=== PATIENT | male | born 1960 | race African-American/Black ===

== ENCOUNTER 2021-04-03 19:26 | Inpatient (IN) | payer OTHER ==
[~2021-04-03] VITALS: Ht 175.3 cm; Wt 64.3 kg
[2021-04-03 20:29] LABS: Albumin 4.3 g/dL (3.4-5.0); Calcium 8.9 mg/dL (8.5-10.1); Potassium 3.4 mmol/L (3.5-5.1)
[2021-04-03 20:34] LABS: BUN/Creatinine Ratio 21.4; Bilirubin, Total 0.4 mg/dL (0.2-1.0)
[2021-04-03] MEDS ORDERED: ALBUTEROL SULF 2.5 MG/0.5ML(0.5%) NEB SOLN NEB ONE ×2 (21:00→21:15)
[2021-04-03] MEDS ORDERED: methylPREDNISolone SOD SUCC 125 MG/2 ML VL IV ONE (21:00)
[2021-04-03] MEDS ORDERED: IPRATROPIUM BROM 0.5 MG/2.5ML INH SOL NEB ONE (21:00)
[2021-04-03 21:07] LABS: Basophils # (auto) 0 10 ^3/uL (0-0.2); Eosinophils # (auto) 0.1 10 ^3/uL (0-0.8); Monocytes # (auto) 0.3 10 ^3/uL (0-1.3); White Blood Cell 3.5 10^3/uL (4.4-10.8)
[2021-04-03 21:08] LABS: Basophils % (auto) 0.9 % (0.0-2.0); Eosinophils % (auto) 1.7 % (0.0-7.0); Lymphocytes # (auto) 0.8 10 ^3/uL (0.4-5.4); Lymphocytes % (auto) 23.5 % (10.0-50.0); Mean Corpuscular Hemoglobin 33.5 pg (28.0-32.0); Mean Corpuscular Hgb Conc. 34.2 g/dL (32.0-36.0); Monocytes % (auto) 8.3 % (0.0-12.0); Neutrophils # (auto) 2.3 10 ^3/uL (1.6-8.6); Neutrophils % (auto) 65.6 % (37.0-80.0); Nucleated Red Blood Cells % 0.2 %; Red Blood Cells 3.57 10^6/uL (4.5-5.90); Red Cell Distribution Width 15.4 % (11.8-14.3)
[2021-04-03] MEDS ORDERED: ALBUTEROL SULF 2.5 MG/0.5ML(0.5%) NEB SOLN ONE (21:14)
[2021-04-03] MEDS ORDERED: HEPARIN DRIP/D5W 100UNITS/ML 250 ML IV SCH (21:15)
[2021-04-03] MEDS ORDERED: CLOPIDOGREL BISULFATE 75 MG TAB PO ONE (21:15)
[2021-04-03] MEDS ORDERED: HEPARIN SODIUM (PORCINE) 5000 UNITS/ML 1ML VIAL IV ONE (21:15)
[2021-04-03] MEDS ORDERED: CLOPIDOGREL BISULFATE 75 MG TAB ONE ×2 (22:58→22:59)
[2021-04-03] MEDS ORDERED: MORPHINE SULFATE 4 MG/ML SYR/VIAL IV ONE (23:15)
[2021-04-04 00:02] LABS: INR 1.03 (0.9-1.15)
[2021-04-04 00:04] LABS: Partial Thromboplastin Time 96.5 sec (23.0-31.2)
[2021-04-04] MEDS ORDERED: D5W/SOD CHL 0.45% 1,000 ML IV SCH (01:30)
[2021-04-04] MEDS ORDERED: MORPHINE SULF INJ 2 MG/ML SYRINGE 1ML IV PRN (01:30)
[2021-04-04] MEDS ORDERED: DEXTROSE (50%) 50ML SYRG IV PRN (01:30)
[2021-04-04] MEDS ORDERED: ACETAMINOPHEN 325 MG TAB PO PRN (01:30)
[2021-04-04] MEDS ORDERED: NITROGLYCERIN 0.4 MG SL TAB SL PRN (01:30)
[2021-04-04] MEDS: MORPHINE SULFATE 4 MG/ML SYR/VIAL IV PRN ×6 (03:45→23:05)
[2021-04-04] MEDS: ACCU-CHEK COMFORT CURVE STRIP VI SCH ×3 (04:00→12:23)
[2021-04-04] MEDS: InsuLIN REG 1unit/0.01ml Soln (100units/ml) SC SCH ×4 (04:00→12:24)
[2021-04-04 04:07] VITALS: BP 144/72
[2021-04-04 05:00] VITALS: BP 144/72
[2021-04-04] MEDS ORDERED: POTASSIUM CHL 20 Meq TABLET PO ONE (05:30)
[2021-04-04 08:23] LABS: Albumin 3.7 g/dL (3.4-5.0); Calcium 8.5 mg/dL (8.5-10.1); Potassium 4.6 mmol/L (3.5-5.1)
[2021-04-04 08:28] LABS: BUN/Creatinine Ratio 23.8; Bilirubin, Total 0.4 mg/dL (0.2-1.0); Total Protein 7.7 g/dL (6.4-8.2)
[2021-04-04 09:00] VITALS: BP 132/79
[2021-04-04] MEDS ORDERED: ZINC SULFATE 220mg CAP or TAB PO SCH (10:00)
[2021-04-04] MEDS ORDERED: FAMOTIDINE (10MG/ML) 2ML VL IV SCH (10:00)
[2021-04-04] MEDS ORDERED: ASCORBIC ACID 500 MG TAB PO SCH (10:00)
[2021-04-04] MEDS: MULTIPLE VITAMIN TAB PO SCH (10:00)
[2021-04-04] MEDS: ENOXAPARIN SOD 60 MG/0.6 ML SYRINGE SC SCH ×2 (10:13→22:13)
[2021-04-04] MEDS: ASPirin 81 mg TAB PO SCH (10:13)
[2021-04-04 10:18] LABS: Basophils # (auto) 0 10 ^3/uL (0-0.2); Basophils % (auto) 0.2 % (0.0-2.0); Eosinophils # (auto) 0 10 ^3/uL (0-0.8); Hemoglobin 11.2 g/dL (13.5-17.5); Lymphocytes # (auto) 0.3 10 ^3/uL (0.4-5.4); Lymphocytes % (auto) 5.6 % (10.0-50.0); Mean Corpuscular Hemoglobin 33.4 pg (28.0-32.0); Mean Corpuscular Hgb Conc. 33.9 g/dL (32.0-36.0); Mean Corpuscular Volume 98.4 fL (80.0-100.0); Monocytes # (auto) 0 10 ^3/uL (0-1.3); Monocytes % (auto) 0.7 % (0.0-12.0); Neutrophils # (auto) 4.2 10 ^3/uL (1.6-8.6); Neutrophils % (auto) 93.5 % (37.0-80.0); Nucleated Red Blood Cells % 0.1 %; Red Blood Cells 3.35 10^6/uL (4.5-5.90); White Blood Cell 4.5 10^3/uL (4.4-10.8)
[2021-04-04] MEDS: NICOTINE 14 MG/24HR TOPICAL PATCH TD SCH (10:19)
[2021-04-04 10:24] LABS: INR 0.97 (0.9-1.15); Partial Thromboplastin Time 28.8 sec (23.0-31.2)
[2021-04-04 13:00] VITALS: BP 135/80
[2021-04-04] MEDS ORDERED: SPIR25TA8 PO (16:14)
[2021-04-04] MEDS ORDERED: FLUT1AER6 PO (16:14)
[2021-04-04] MEDS ORDERED: DIPH25CA46 PO (16:14)
[2021-04-04] MEDS ORDERED: LORA1TAB23 PO (16:14)
[2021-04-04] MEDS ORDERED: ALBU108A5 PO (16:14)
[2021-04-04] MEDS ORDERED: ATOR-47 PO (16:14)
[2021-04-04] MEDS ORDERED: LEVE500T3 PO (16:14)
[2021-04-04] MEDS ORDERED: TIOTCAP PO (16:14)
[2021-04-04] MEDS ORDERED: ASPI-487 PO (16:14)
[2021-04-04] MEDS ORDERED: CARV3.1240 PO (16:14)
[2021-04-04] MEDS ORDERED: PANT40T PO (16:14)
[2021-04-04] MEDS ORDERED: SACU1TAB PO (16:14)
[2021-04-04] MEDS ORDERED: CLOP75TA70 PO (16:14)
[2021-04-04] MEDS ORDERED: LORazepam 0.5 MG TAB PO PRN (16:30)
[2021-04-04 17:00] VITALS: BP 136/86
[2021-04-04] MEDS: ONDANSETRON HCL 4 MG/2 ML VIAL IV PRN ×2 (19:00→23:06)
[2021-04-04 21:50] LABS: Amphetamine Screen, Urine NEGATIVE (NEGATIVE); Barbiturate Scree,Urine NEGATIVE (NEGATIVE); Benzodiazephine Screen, Urine NEGATIVE (NEGATIVE); Cannabinoid Screen, Urine POSITIVE (NEGATIVE); Cocaine Screen, Urine NEGATIVE (NEGATIVE); Opiate Scree,Urine POSITIVE (NEGATIVE); Phencyclidine Screen, Urine NEGATIVE (NEGATIVE)
[2021-04-04] MEDS: ATORVASTATIN 20 MG TAB PO SCH (22:13)
[2021-04-05 02:57] VITALS: BP 116/71
[2021-04-05] MEDS: MORPHINE SULFATE 4 MG/ML SYR/VIAL IV PRN ×4 (03:46→21:13)
[2021-04-05 05:30] VITALS: BP 123/75
[2021-04-05 09:00] VITALS: BP 131/82
[2021-04-05 10:01] LABS: Basophils # (auto) 0 10 ^3/uL (0-0.2); Basophils % (auto) 0.2 % (0.0-2.0); Eosinophils # (auto) 0 10 ^3/uL (0-0.8); Hematocrit 33.9 % (41.0-53.0); Hemoglobin 11.6 g/dL (13.5-17.5); Lymphocytes # (auto) 0.3 10 ^3/uL (0.4-5.4); Lymphocytes % (auto) 3.4 % (10.0-50.0); Mean Corpuscular Hemoglobin 33.6 pg (28.0-32.0); Mean Corpuscular Hgb Conc. 34.4 g/dL (32.0-36.0); Mean Corpuscular Volume 97.8 fL (80.0-100.0); Monocytes # (auto) 0.8 10 ^3/uL (0-1.3); Neutrophils # (auto) 7.2 10 ^3/uL (1.6-8.6); Neutrophils % (auto) 86.4 % (37.0-80.0); Nucleated Red Blood Cells % 0.1 %; Red Blood Cells 3.46 10^6/uL (4.5-5.90); Red Cell Distribution Width 15.2 % (11.8-14.3); White Blood Cell 8.4 10^3/uL (4.4-10.8)
[2021-04-05 10:12] LABS: Albumin 3.6 g/dL (3.4-5.0); Potassium 4.2 mmol/L (3.5-5.1)
[2021-04-05 10:17] LABS: Bilirubin, Total 0.5 mg/dL (0.2-1.0); Calcium 8.2 mg/dL (8.5-10.1); Total Protein 7.1 g/dL (6.4-8.2)
[2021-04-05] MEDS ORDERED: ACETYLCYSTEINE ORAL for CIN 20%(200MG/ML) 4ML PO ONE (10:30)
[2021-04-05] MEDS: MULTIPLE VITAMIN TAB PO SCH (11:13)
[2021-04-05] MEDS: ENOXAPARIN SOD 60 MG/0.6 ML SYRINGE SC SCH ×2 (11:13→22:00)
[2021-04-05] MEDS: ASPirin 81 mg TAB PO SCH (11:14)
[2021-04-05] MEDS: NICOTINE 14 MG/24HR TOPICAL PATCH TD SCH (11:15)
[2021-04-05] MEDS ORDERED: CLOPIDOGREL BISULFATE 75 MG TAB PO ONE (12:00)
[2021-04-05] MEDS ORDERED: NITROGLYCERIN 0.2MG/HR TOPICAL PATCH TD ONE (12:00)
[2021-04-05] MEDS: HYDROcodone-ACET 5/325MG TAB PO PRN ×2 (12:15→17:36)
[2021-04-05 13:00] VITALS: BP 125/80
[2021-04-05 17:00] VITALS: BP 119/75
[2021-04-05] MEDS: ONDANSETRON HCL 4 MG/2 ML VIAL IV PRN (17:35)
[2021-04-05] MEDS: ATORVASTATIN 20 MG TAB PO SCH (21:13)
[2021-04-05] MEDS: CARVEDILOL 3.125 MG TAB PO SCH (21:23)
[2021-04-05] MEDS: ACETYLCYSTEINE ORAL for CIN 20%(200MG/ML) 4ML PO SCH (21:24)
[2021-04-05 22:00] VITALS: BP 125/84
[2021-04-06] MEDS: MORPHINE SULFATE 4 MG/ML SYR/VIAL IV PRN ×3 (02:29→22:49)
[2021-04-06 05:00] VITALS: BP 133/69
[2021-04-06 05:21] VITALS: BP 125/84
[2021-04-06 07:09] LABS: Basophils # (auto) 0 10 ^3/uL (0-0.2); Basophils % (auto) 0.4 % (0.0-2.0); Eosinophils # (auto) 0 10 ^3/uL (0-0.8); Eosinophils % (auto) 0.3 % (0.0-7.0); Hematocrit 32.4 % (41.0-53.0); Hemoglobin 10.9 g/dL (13.5-17.5); Lymphocytes # (auto) 0.8 10 ^3/uL (0.4-5.4); Lymphocytes % (auto) 19.5 % (10.0-50.0); Mean Corpuscular Hemoglobin 33.3 pg (28.0-32.0); Mean Corpuscular Hgb Conc. 33.8 g/dL (32.0-36.0); Mean Corpuscular Volume 98.5 fL (80.0-100.0); Monocytes # (auto) 0.5 10 ^3/uL (0-1.3); Monocytes % (auto) 12.7 % (0.0-12.0); Neutrophils # (auto) 2.8 10 ^3/uL (1.6-8.6); Neutrophils % (auto) 67.1 % (37.0-80.0); Nucleated Red Blood Cells % 0.1 %; Red Blood Cells 3.28 10^6/uL (4.5-5.90); Red Cell Distribution Width 15.2 % (11.8-14.3); White Blood Cell 4.2 10^3/uL (4.4-10.8)
[2021-04-06 07:23] LABS: BUN/Creatinine Ratio 16.9; Calcium 8.8 mg/dL (8.5-10.1); Potassium 3.5 mmol/L (3.5-5.1)
[2021-04-06 07:36] LABS: INR 1.04 (0.9-1.15); Partial Thromboplastin Time 24.1 sec (23.0-31.2)
[2021-04-06 09:00] VITALS: BP 114/60
[2021-04-06] MEDS: CARVEDILOL 3.125 MG TAB PO SCH ×2 (09:49→22:48)
[2021-04-06] MEDS: ASPirin 81 mg TAB PO SCH (09:49)
[2021-04-06] MEDS: NICOTINE 14 MG/24HR TOPICAL PATCH TD SCH (09:50)
[2021-04-06] MEDS: MULTIPLE VITAMIN TAB PO SCH (09:50)
[2021-04-06] MEDS: CLOPIDOGREL BISULFATE 75 MG TAB PO SCH (09:50)
[2021-04-06] MEDS: ENOXAPARIN SOD 60 MG/0.6 ML SYRINGE SC SCH ×2 (09:50→22:46)
[2021-04-06] MEDS: ACETYLCYSTEINE ORAL for CIN 20%(200MG/ML) 4ML PO SCH ×2 (10:00→22:47)
[2021-04-06] MEDS ORDERED: NITR0.4S29 SL (14:08)
[2021-04-06] MEDS ORDERED: ALBU0.633 NEB (14:08)
[2021-04-06] MEDS ORDERED: FOLI1TAB6 PO (14:08)
[2021-04-06] MEDS ORDERED: FERR1TAB8 PO (14:08)
[2021-04-06] MEDS ORDERED: IOHEXOL 350 MG/ML 100ML IJ ONE (16:00)
[2021-04-06] MEDS ORDERED: LIDOCAINE 2%HCL (LOCAL ANESTH.) INJ 20ML MDV ONE (16:00)
[2021-04-06] MEDS ORDERED: ANGIOMAX 250 MG VIAL IV ONE (16:19)
[2021-04-06] MEDS ORDERED: fentaNYL CITRATE 100 MCG/2 ML VL ONE (16:19)
[2021-04-06] MEDS ORDERED: MIDAZOLAM HCL 1MG/1ML-2 ML VIAL ONE (16:20)
[2021-04-06] MEDS ORDERED: SODIUM CHL 0.9% 50 ML ONE (16:20)
[2021-04-06] MEDS: ALBUTEROL SULF 2.5 MG/0.5ML(0.5%) NEB SOLN NEB PRN (18:33)
[2021-04-06 22:00] VITALS: BP 126/71
[2021-04-06] MEDS: ATORVASTATIN 20 MG TAB PO SCH (22:46)
[2021-04-06] MEDS: ONDANSETRON HCL 4 MG/2 ML VIAL IV PRN (22:48)
[2021-04-07 05:00] VITALS: BP 108/68
[2021-04-07] MEDS: MORPHINE SULFATE 4 MG/ML SYR/VIAL IV PRN ×5 (05:32→23:43)
[2021-04-07] MEDS: ONDANSETRON HCL 4 MG/2 ML VIAL IV PRN ×2 (05:32→23:43)
[2021-04-07 08:43] VITALS: BP 104/46
[2021-04-07] MEDS: MULTIPLE VITAMIN TAB PO SCH (09:46)
[2021-04-07] MEDS: ASPirin 81 mg TAB PO SCH (09:46)
[2021-04-07] MEDS: CLOPIDOGREL BISULFATE 75 MG TAB PO SCH (09:47)
[2021-04-07] MEDS: ENOXAPARIN SOD 60 MG/0.6 ML SYRINGE SC SCH (09:47)
[2021-04-07] MEDS: NICOTINE 14 MG/24HR TOPICAL PATCH TD SCH (10:25)
[2021-04-07] MEDS: CARVEDILOL 3.125 MG TAB PO SCH ×2 (10:25→21:35)
[2021-04-07] MEDS: ACETYLCYSTEINE ORAL for CIN 20%(200MG/ML) 4ML PO SCH (11:06)
[2021-04-07 13:00] VITALS: BP 100/66
[2021-04-07] MEDS: ALBUTEROL SULF 2.5 MG/0.5ML(0.5%) NEB SOLN NEB PRN ×2 (13:17→17:55)
[2021-04-07 16:58] VITALS: BP 119/55
[2021-04-07] MEDS: SACUBITRIL-VALSARTAN 24mg/26mg TAB PO SCH (21:35)
[2021-04-07] MEDS: ATORVASTATIN 20 MG TAB PO SCH (21:36)
[2021-04-07] MEDS: levETIRAcetam 500 MG TAB PO SCH (21:36)
[2021-04-07 22:17] VITALS: BP 100/65
[2021-04-08 05:00] VITALS: BP 97/54
[2021-04-08] MEDS: ONDANSETRON HCL 4 MG/2 ML VIAL IV PRN (07:00)
[2021-04-08] MEDS: MORPHINE SULFATE 4 MG/ML SYR/VIAL IV PRN (07:00)
[2021-04-08 09:00] VITALS: BP 111/76
[2021-04-08] MEDS: ASPirin 81 mg TAB PO SCH (09:48)
[2021-04-08] MEDS: CARVEDILOL 3.125 MG TAB PO SCH (09:49)
[2021-04-08] MEDS: NICOTINE 14 MG/24HR TOPICAL PATCH TD SCH (09:50)
[2021-04-08] MEDS: CLOPIDOGREL BISULFATE 75 MG TAB PO SCH (09:50)
[2021-04-08] MEDS: SACUBITRIL-VALSARTAN 24mg/26mg TAB PO SCH (09:50)
[2021-04-08] MEDS: MULTIPLE VITAMIN TAB PO SCH (09:50)
[2021-04-08] MEDS: levETIRAcetam 500 MG TAB PO SCH (09:51)
[2021-04-08] MEDS: HYDROcodone-ACET 5/325MG TAB PO PRN (10:55)
[2021-04-08 12:50] VITALS: BP 111/76
[2021-04-08 13:00] VITALS: BP 123/69
== END 2021-04-08 13:02 | disposition home or self-care (01) | DRG 281 ==
LOC: EDBD 19:26 → ER 19:29 → TELE 04-04 01:17 → TELE-WESTW 04-04 03:25
PROVIDERS: ADMIT Nurse Practitioner Family; ATTEND Internal Medicine
PROC: 4A023N7 Measurement of Cardiac Sampling and Pressure, Left Heart, Percutaneous Approach (ICD-10-PCS; principal; 2021-04-06)
PROC: B2111ZZ Fluoroscopy of Multiple Coronary Arteries using Low Osmolar Contrast (ICD-10-PCS; 2021-04-06)
PROC: B2151ZZ Fluoroscopy of Left Heart using Low Osmolar Contrast (ICD-10-PCS; 2021-04-06)
DX: I25.10 Atherosclerotic heart disease of native coronary artery without angina pectoris (principal); I21.4 Non-ST elevation (NSTEMI) myocardial infarction; D68.9 Coagulation defect, unspecified; F11.20 Opioid dependence, uncomplicated; K86.1 Other chronic pancreatitis; I50.22 Chronic systolic (congestive) heart failure; E87.6 Hypokalemia; E78.5 Hyperlipidemia, unspecified; E11.649 Type 2 diabetes mellitus with hypoglycemia without coma; F12.90 Cannabis use, unspecified, uncomplicated; F17.210 Nicotine dependence, cigarettes, uncomplicated; G40.909 Epilepsy, unspecified, not intractable, without status epilepticus; Z20.822 Contact with and (suspected) exposure to COVID-19; I25.5 Ischemic cardiomyopathy; G89.29 Other chronic pain; I25.2 Old myocardial infarction; Z82.49 Family history of ischemic heart disease and other diseases of the circulatory system; Z87.442 Personal history of urinary calculi; Z95.810 Presence of automatic (implantable) cardiac defibrillator; Z98.61 Coronary angioplasty status
CPT/HCPCS: 36415; 71045; 80048; 80053; 80061; 80307; 82542; 82962; 83036; 83880; 84484; 85025; 85610; 85730; 86850; 86900; 86901; 87081; 87426; 93005; 93306; 93458; 94640; 94644; 96365; 96366; 96368; 96375; 96376; 99152; 99153; C1887; G0378; J1815; J2250; J2405; J3490; J7060

== ENCOUNTER 2021-04-12 20:30 | Inpatient (IN) | payer OTHER ==
[~2021-04-12] VITALS: Ht 175.3 cm; Wt 65.6 kg
[~2021-04-12 20:30] MED LIST: ALBU0.633 NEB; ALBU108A5 PO; ASPI-487 PO; ATOR-47 PO; CARV3.1240 PO; CLOP75TA70 PO; DIPH25CA46 PO; FERR1TAB8 PO; FLUT1AER6 PO; FOLI1TAB6 PO; LEVE500T3 PO; LORA1TAB23 PO; NITR0.4S29 SL; PANT40T PO; SACU1TAB PO; SPIR25TA8 PO; TIOTCAP PO
[2021-04-12 21:18] LABS: Basophils # (auto) 0.1 10 ^3/uL (0-0.2); Monocytes # (auto) 0.5 10 ^3/uL (0-1.3); Monocytes % (auto) 14.2 % (0.0-12.0); Platelet Count (auto) 207 10^3/uL (140-450)
[2021-04-12 21:22] LABS: Basophils % (auto) 2.8 % (0.0-2.0); Eosinophils # (auto) 0 10 ^3/uL (0-0.8); Eosinophils % (auto) 1.3 % (0.0-7.0); Hematocrit 31.2 % (41.0-53.0); Hemoglobin 10.6 g/dL (13.5-17.5); Lymphocytes # (auto) 1.3 10 ^3/uL (0.4-5.4); Lymphocytes % (auto) 35.9 % (10.0-50.0); Mean Corpuscular Hemoglobin 33.9 pg (28.0-32.0); Mean Corpuscular Hgb Conc. 34.1 g/dL (32.0-36.0); Mean Corpuscular Volume 99.4 fL (80.0-100.0); Neutrophils # (auto) 1.7 10 ^3/uL (1.6-8.6); Neutrophils % (auto) 45.8 % (37.0-80.0); Nucleated Red Blood Cells % 0.2 %; Red Blood Cells 3.14 10^6/uL (4.5-5.90); Red Cell Distribution Width 15.9 % (11.8-14.3); White Blood Cell 3.7 10^3/uL (4.4-10.8)
[2021-04-12 21:30] LABS: BUN/Creatinine Ratio 12.6; Calcium 8.7 mg/dL (8.5-10.1); Potassium 4.3 mmol/L (3.5-5.1)
[2021-04-12 21:35] LABS: Bilirubin, Total 0.4 mg/dL (0.2-1.0); Total Protein 8.2 g/dL (6.4-8.2)
[2021-04-12] MEDS ORDERED: MORPHINE SULFATE 4 MG/ML SYR/VIAL IV ONE (23:30)
[2021-04-12] MEDS ORDERED: ONDANSETRON HCL 4 MG/2 ML VIAL IV ONE (23:30)
[2021-04-13] MEDS ORDERED: TEMAZEPAM 15 MG CAP PO PRN (02:45)
[2021-04-13] MEDS ORDERED: ONDANSETRON HCL 4 MG/2 ML VIAL IV PRN (02:45)
[2021-04-13] MEDS ORDERED: HYDROcodone-ACET 5/325MG TAB PO PRN (02:45)
[2021-04-13] MEDS ORDERED: ACETAMINOPHEN 325 MG TAB PO PRN (02:45)
[2021-04-13] MEDS ORDERED: NITROGLYCERIN 0.4 MG SL TAB SL PRN (02:45)
[2021-04-13] MEDS ORDERED: ENOXAPARIN SOD 100 MG/1 ML SYRINGE SC ONE (02:45)
[2021-04-13] MEDS: MORPHINE SULF INJ 2 MG/ML SYRINGE 1ML IV PRN ×5 (04:02→20:32)
[2021-04-13] MEDS ORDERED: LEVE500T32 PO (05:08)
[2021-04-13 05:21] LABS: Partial Thromboplastin Time 26.5 sec (23.0-31.2)
[2021-04-13 08:50] VITALS: BP 149/98
[2021-04-13] MEDS: CARVEDILOL 3.125 MG TAB PO SCH ×2 (09:50→20:32)
[2021-04-13] MEDS: CLOPIDOGREL BISULFATE 75 MG TAB PO SCH (09:51)
[2021-04-13] MEDS: levETIRAcetam 500 MG TAB PO SCH ×2 (09:51→20:33)
[2021-04-13] MEDS: PANTOPRAZOLE 40 MG TAB PO SCH (09:51)
[2021-04-13] MEDS: SPIRONOLACTONE 25 MG TAB PO SCH (09:51)
[2021-04-13] MEDS: ASPirin 81 mg TAB PO SCH (09:52)
[2021-04-13] MEDS: SACUBITRIL-VALSARTAN 24mg/26mg TAB PO SCH ×2 (09:52→20:33)
[2021-04-13 13:00] VITALS: BP 148/90
[2021-04-13 17:28] VITALS: BP 134/85
[2021-04-13] MEDS ORDERED: ATORVASTATIN 20 MG TAB PO SCH (22:00)
[2021-04-13 22:17] VITALS: BP 163/95
[2021-04-13] MEDS: BUDESONIDE (INHALATION) 0.5 MG/2 ML NEB NEB SCH (23:19)
[2021-04-13] MEDS: ALBUTEROL SULF 2.5 MG/0.5ML(0.5%) NEB SOLN NEB PRN (23:19)
[2021-04-13] MEDS: IPRATROPIUM BROM 0.5 MG/2.5ML INH SOL NEB PRN (23:19)
[2021-04-13 23:20] VITALS: BP 163/95
[2021-04-14] MEDS: MORPHINE SULF INJ 2 MG/ML SYRINGE 1ML IV PRN ×2 (00:39→10:25)
[2021-04-14 05:40] VITALS: BP 126/84
[2021-04-14] MEDS: IPRATROPIUM BROM 0.5 MG/2.5ML INH SOL NEB PRN (06:04)
[2021-04-14] MEDS: ALBUTEROL SULF 2.5 MG/0.5ML(0.5%) NEB SOLN NEB PRN (06:04)
[2021-04-14] MEDS: BUDESONIDE (INHALATION) 0.5 MG/2 ML NEB NEB SCH (06:04)
[2021-04-14 06:18] LABS: Red Blood Cells 3.13 10^6/uL (4.5-5.90); White Blood Cell 3.7 10^3/uL (4.4-10.8)
[2021-04-14 06:21] LABS: Hematocrit 30.5 % (41.0-53.0); Hemoglobin 10.7 g/dL (13.5-17.5); Mean Corpuscular Hemoglobin 34.2 pg (28.0-32.0); Mean Corpuscular Hgb Conc. 35.1 g/dL (32.0-36.0); Mean Corpuscular Volume 97.4 fL (80.0-100.0); Platelet Count (auto) 237 10^3/uL (140-450); Red Cell Distribution Width 15.7 % (11.8-14.3)
[2021-04-14 06:33] LABS: Potassium 3.7 mmol/L (3.5-5.1)
[2021-04-14 06:37] LABS: BUN/Creatinine Ratio 14.5; Calcium 8.1 mg/dL (8.5-10.1)
[2021-04-14 07:18] LABS: Basophils % (manual) 0 (0.0-2.0); Blast Cells 0; Eosinophils % (manual) 0 (0-7); Metamyelocytes % 0; Myelocytes % 0; Promyelocytes % 0; Reactive Lymphocytes 0
[2021-04-14 07:48] LABS: Band Neutrophils % (manual) 4; Lymphocytes % (manual) 27 (10.0-50.0); Monocytes % (manual) 16 (0-12)
[2021-04-14] MEDS: SACUBITRIL-VALSARTAN 24mg/26mg TAB PO SCH (08:15)
[2021-04-14] MEDS: levETIRAcetam 500 MG TAB PO SCH (08:18)
[2021-04-14] MEDS: SPIRONOLACTONE 25 MG TAB PO SCH (08:22)
[2021-04-14] MEDS: ASPirin 81 mg TAB PO SCH (08:22)
[2021-04-14] MEDS: CLOPIDOGREL BISULFATE 75 MG TAB PO SCH (08:23)
[2021-04-14] MEDS: PANTOPRAZOLE 40 MG TAB PO SCH (08:23)
[2021-04-14] MEDS: CARVEDILOL 3.125 MG TAB PO SCH (08:23)
[2021-04-14 09:04] VITALS: BP 124/73
[2021-04-14 13:00] VITALS: BP 101/73
== END 2021-04-14 17:50 | disposition home or self-care (01) | DRG 281 ==
LOC: EDBD 20:30 → ER 20:37 → TELE 04-13 02:45 → TELE-WESTW 04-13 04:30
PROVIDERS: ADMIT Nurse Practitioner; ATTEND Family Medicine
DX: I21.4 Non-ST elevation (NSTEMI) myocardial infarction (principal); F11.20 Opioid dependence, uncomplicated; I50.20 Unspecified systolic (congestive) heart failure; Z20.822 Contact with and (suspected) exposure to COVID-19; D64.9 Anemia, unspecified; E11.9 Type 2 diabetes mellitus without complications; E78.5 Hyperlipidemia, unspecified; F17.210 Nicotine dependence, cigarettes, uncomplicated; G40.909 Epilepsy, unspecified, not intractable, without status epilepticus; G89.4 Chronic pain syndrome; I11.0 Hypertensive heart disease with heart failure; I25.10 Atherosclerotic heart disease of native coronary artery without angina pectoris; I25.5 Ischemic cardiomyopathy; Z82.49 Family history of ischemic heart disease and other diseases of the circulatory system; Z95.5 Presence of coronary angioplasty implant and graft
CPT/HCPCS: 36415; 71045; 80048; 80053; 84484; 85007; 85025; 85027; 85049; 85610; 85730; 87070; 87081; 87205; 87426; 93005; 94640; 96374; 96375; 99291; G0378; J2405